=== PATIENT | male | born 1990 ===

== ENCOUNTER 2021-06-06 12:48 | Emergency (ER) | payer OTHER ==
[2021-06-06 12:51] VITALS: BP 122/66; PULSE 84
[2021-06-06] MEDS ORDERED: Orphenadrine 60 MG/2 ML Inj IM ONE (12:51)
[2021-06-06] MEDS ORDERED: Ketorolac 60 MG/2 ML SDV IM ONE (12:51)
[2021-06-06] MEDS ORDERED: Take Home: Ketorolac 10 MG Tab, 4 Tab Pack PO ONE (13:04)
[2021-06-06] MEDS ORDERED: Take Home: Cyclobenzaprine 10 MG Tab, 4 Tab Pack PO ONE (13:06)
[2021-06-06] MEDS ORDERED: Take Home: Acetaminophen/HYDROcodone 325-5 MG, 2 Tab Pack PO ONE (13:12)
== END 2021-06-06 13:35 | disposition home or self-care (01) ==
LOC: CC.ED 12:48
DX: M54.41 Lumbago with sciatica, right side (principal); M62.830 Muscle spasm of back
CPT/HCPCS: 96372; 99283; A9270-GY; J1885; J2360